=== PATIENT | male | born 1945 | race Hispanic/Latino ===

== ENCOUNTER → 2021-10-04 | Day surgery (SDC) | payer OTHER ==
[2021-09-29 13:22] LABS: BASOPHILS % 0.6 % (0.0-1.0); EOSINOPHILS # (AUTO) 0.1 (0.0-0.4); EOSINOPHILS % 1.7 % (0.0-6.0); LYMPHOCYTES % 30.5 % (18.0-39.1); MEAN CORPUSCULAR HEMOGLOBIN 31.1 pg (28-32); MEAN CORPUSCULAR HGB CONC 32.6 g/dL (31-35); MEAN CORPUSCULAR VOLUME 95.6 fL (81-99); MONOCYTES # (AUTO) 0.6 (0.2-0.8); MONOCYTES % 8.8 % (4.4-11.3); NEUTROPHILS # (AUTO) 3.7 (2.1-6.9); NEUTROPHILS % 58.2 % (38.7-80.0); PLATELET COUNT 253 x10e3/uL (140-360); RED CELL DISTRIBUTION WIDTH 13.5 % (11.7-14.4)
[~2021-10-04] MED LIST: ALFUZOSIN HCL10 MG; ALLERGY4 MG; ANIMAL CHEWS1 EACH; ASPIRIN81 MG PO; CALCIUM; D3; EXFORGE 5-1601 EACH; FINASTERIDE5 MG PO; FLONASE ALLERG9.9 ML INH; HYDROCHLOROTHIA25 MG; IPRATROPIUM BRO15 ML; METOPROLOL SUCC50 MG PO; OMEGA 3 1,0001 EACH PO; PRAVASTATIN SOD10 MG; TOPIRAMATE50 MG; TURMERIC1 GM; VITAMIN C1000 MG PO
[2021-10-04 08:25] VITALS: BP 106/67
== END | disposition home or self-care (01) ==
LOC: OR 05:36
PROVIDERS: ATTEND Internal Medicine Gastroenterology
DX: Z12.11 Encounter for screening for malignant neoplasm of colon (principal); D12.2 Benign neoplasm of ascending colon; K57.30 Diverticulosis of large intestine without perforation or abscess without bleeding; Z71.3 Dietary counseling and surveillance; G47.33 Obstructive sleep apnea (adult) (pediatric); I45.10 Unspecified right bundle-branch block; I10 Essential (primary) hypertension; E78.5 Hyperlipidemia, unspecified; K44.9 Diaphragmatic hernia without obstruction or gangrene; N20.0 Calculus of kidney; E66.3 Overweight; Z88.8 Allergy status to other drugs, medicaments and biological substances; Z01.810 Encounter for preprocedural cardiovascular examination; Z01.812 Encounter for preprocedural laboratory examination; Z20.822 Contact with and (suspected) exposure to COVID-19; Z68.29 Body mass index [BMI] 29.0-29.9, adult
CPT/HCPCS: 0223U; 36415; 45378; 85025; 88304; 88305; 93005